=== PATIENT | female | born 1985 | race Caucasian/White ===

== ENCOUNTER 2019-01-24 14:03 | Emergency (ER) | payer OTHER ==
[~2019-01-24] VITALS: Ht 149.9 cm; Wt 44.5 kg
[2019-01-24 14:03] VITALS: BP 114/64
== END 2019-01-24 16:14 | disposition home or self-care (01) ==
LOC: ER 14:10
DX: G43.909 Migraine, unspecified, not intractable, without status migrainosus (principal)
CPT/HCPCS: 70450-TC; 84703-TC

== ENCOUNTER 2019-09-08 19:27 | Emergency (ER) | payer SELFPAY ==
[~2019-09-08] VITALS: Ht 124.5 cm; Wt 49.5 kg
[2019-09-08 19:37] VITALS: BP 124/57
== END 2019-09-08 20:10 | disposition home or self-care (01) ==
LOC: ER 19:30
DX: M25.512 Pain in left shoulder (principal); G43.909 Migraine, unspecified, not intractable, without status migrainosus; Z60.2 Problems related to living alone